=== PATIENT | female | born 1970 | race Caucasian/White ===

== ENCOUNTER → 2020-03-26 | Outpatient (CLI) | payer OTHER ==
--- NOTE | 2020-03-26 16:37 | Diagnostic Imaging Report ---
PROCEDURE: MR imaging left lower extremity without contrast. TECHNIQUE: Multiplanar, multisequence non contrast enhanced MR imaging of the left lower extremity was accomplished. INDICATION: Left foot pain after injury. COMPARISON: None available. FINDINGS: Bones: There is no bone marrow edema within the osseous structures of the forefoot or midfoot to indicate stress fracture or osteitis. No erosions are present. Normal T1 hyperintense bone marrow signal is present. No significant degenerative changes within the MTP joints. Soft tissues: Lisfranc ligamentous complex is intact. Intrinsic musculature of the foot is normal bulk and signal. There is a thin plaque-like soft tissue nodule along the plantar fascia in the proximal forefoot measuring 2 x 4 mm and may represent a small focus of nodular fibromatosis. No features of intermetatarsal bursitis. No Nelson's neuroma. IMPRESSION: 1. No fracture or stress fracture within the left midfoot and forefoot. 2. No tendon injury or muscle strain. 3. Incidental note of small nodular focus of soft tissue thickening of plantar fascia could represent mild plantar fibromatosis. Dictated by: Dictated on workstation # [id number]
== END ==
LOC: RAD 14:27
PROVIDERS: ATTEND Family Medicine
DX: M79.672 Pain in left foot (principal)

== ENCOUNTER 2021-06-29 17:40 | Emergency (ER) | payer OTHER ==
[~2021-06-29] VITALS: Ht 170.2 cm; Wt 122.5 kg
--- NOTE | 2021-06-29 18:22 | ED Cough/URI ---
General Chief Complaint: Respiratory Problems Stated Complaint: FEVER/SOA Source: patient Exam Limitations: no limitations History of Present Illness Date Seen by Provider: Jun 29, 2021 Time Seen by Provider: 18:15 Initial Comments 51-year-old female with past medical history significant for high blood pressure, hypercholesterolemia and sleep apnea presents with cough, shortness of air and fatigue over the past 5 days. Patient concerned she was exposed to her daughter who tested positive for Covid 2 weeks ago, but has not been around her for the past 2 weeks. She has chills but has not checked her temperature and body aches. Denies abdominal pain vomiting or diarrhea. She has been using her CPAP during the day the last 2 days because of her shortness of air. Allergies and Home Medications Allergies Coded Allergies: No Known Drug Allergies (Unverified , 06/29/21) Home Medications Ondansetron 4 Mg Tab.rapdis, 4 MG PO TID Prescribed by: THANIA GAN on 06/29/211950 Potassium Chloride 20 Meq Tab.er.prt, 20 MEQ PO DAILY Prescribed by: THANIA GAN on 06/29/211950 Patient Home Medication List Home Medication List Reviewed: Yes Review of Systems Review of Systems Constitutional: chills; No fever; malaise EENTM: No ear pain, No throat pain, No throat swelling Respiratory: see HPI, cough, short of breath; No stridor, No wheezing Gastrointestinal: No abdominal pain, No diarrhea; loss of appetite; No nausea, No vomiting Musculoskeletal: No back pain, No joint pain; muscle pain; No muscle weakness Skin: No change in color, No rash Psychiatric/Neurological: Denies Headache, Denies Paresthesia, Denies Seizure Past Soyfhfw-Fqyivd-Kurbbh Hx Patient Social History Tobacco Use?: No Smoking Status: Never a Smoker Substance use?: No Alcohol Use?: No Pt feels they are or have been: No Physical Exam Vital Signs - First Documented 06/29/21 17:55 Temp 35.1 Pulse 71 Resp 19 B/P (MAP) 109/54 (72) Pulse Ox 94 O2 Delivery Room Air Capillary Refill : Height: '" Weight: lbs. oz. kg; BMI Method: General Appearance: WD/WN, no apparent distress HEENT: PERRL/EOMI, normal ENT inspection Neck: non-tender, supple Respiratory: chest non-tender, lungs clear, normal breath sounds, no respiratory distress, no accessory muscle use Cardiovascular: regular rate, rhythm, no edema, no JVD Gastrointestinal: normal bowel sounds, non tender, soft Extremities: normal range of motion, non-tender Neurologic/Psychiatric: alert, normal mood/affect Skin: normal color, warm/dry Focused Exam Lactate Level 06/29/21 18:12: Lactic Acid Level 2.41*H 06/29/21 20:15: Lactic Acid Level Laboratory Tests Test 06/29/21 18:12 06/29/21 20:15 Lactic Acid Level 2.41 MMOL/L (0.50-2.00) *H Progress/Results/Core Measures Suspected Sepsis SIRS Temperature: Pulse: Respiratory Rate: Laboratory Tests 06/29/21 18:12: White Blood Count 4.4 Blood Pressure / Mean: 06/29/21 18:12: Lactic Acid Level 2.41*H 06/29/21 20:15: Laboratory Tests 06/29/21 18:12: Creatinine 1.28, Platelet Count 161, Total Bilirubin 0.4 Results/Orders Lab Results Laboratory Tests Test 06/29/21 18:12 06/29/21 20:15 Range/Units White Blood Count 4.4 4.3-11.0 10^3/uL Red Blood Count 4.88 4.35-5.85 10^6/uL Hemoglobin 15.2 11.5-16.0 G/DL Hematocrit 43 35-52 % Mean Corpuscular Volume 87 80-99 FL Mean Corpuscular Hemoglobin 31 25-34 PG Mean Corpuscular Hemoglobin Concent 36 32-36 G/DL Red Cell Distribution Width 13.1 10.0-14.5 % Platelet Count 161 130-400 10^3/uL Mean Platelet Volume 12.0 H 7.4-10.4 FL Immature Granulocyte % (Auto) 0 % Neutrophils (%) (Auto) 74 42-75 % Lymphocytes (%) (Auto) 20 12-44 % Monocytes (%) (Auto) 5 0-12 % Eosinophils (%) (Auto) 0 0-10 % Basophils (%) (Auto) 1 0-10 % Neutrophils # (Auto) 3.3 1.8-7.8 X 10^3 Lymphocytes # (Auto) 0.9 L 1.0-4.0 X 10^3 Monocytes # (Auto) 0.2 0.0-1.0 X 10^3 Eosinophils # (Auto) 0.0 0.0-0.3 10^3/uL Basophils # (Auto) 0.0 0.0-0.1 10^3/uL Immature Granulocyte # (Auto) 0.0 0.0-0.1 10^3/uL Sodium Level 131 L 135-145 MMOL/L Potassium Level 2.8 L 3.6-5.0 MMOL/L Chloride Level 92 L 98-107 MMOL/L Carbon Dioxide Level 22 21-32 MMOL/L Anion Gap 17 H 5-14 MMOL/L Blood Urea Nitrogen 20 H 7-18 MG/DL Creatinine 1.28 0.60-1.30 MG/DL Estimat Glomerular Filtration Rate 44 BUN/Creatinine Ratio 16 Glucose Level 137 H 70-105 MG/DL Lactic Acid Level 2.41 *H 0.50-2.00 MMOL/L Calcium Level 9.1 8.5-10.1 MG/DL Corrected Calcium 8.7 8.5-10.1 MG/DL Total Bilirubin 0.4 0.1-1.0 MG/DL Aspartate Amino Transf (AST/SGOT) 30 5-34 U/L Alanine Aminotransferase (ALT/SGPT) 22 0-55 U/L Alkaline Phosphatase 70 40-136 U/L Troponin I < 0.30 <0.30 NG/ML C-Reactive Protein 2.04 H <0.50 MG/DL Total Protein 8.0 6.4-8.2 GM/DL Albumin 4.5 3.2-4.5 GM/DL Influenza Type A (RT-PCR) Not Detected Not Detecte Influenza Type B (RT-PCR) Not Detected Not Detecte SARS-CoV-2 RNA (RT-PCR) Detected H Not Detecte My Orders Orders - ROVENSTINECHATOTHANIA Benitez DO Ed Iv/Invasive Line Start (06/29/21 18:17) Chest 1 View Ap/Pa Only (06/29/21 18:17) Ekg Tracing (06/29/21 18:17) Troponin I Fs (06/29/21 18:17) Cbc With Automated Diff (06/29/21 18:17) Comprehensive Metabolic Panel (06/29/21 18:17) Lactic Acid Analyzer (06/29/21 18:17) Crp Fs (06/29/21 18:17) Covid 19 Inhouse Test (06/29/21 18:17) Influenza A And B By Pcr (06/29/21 18:17) Procalcitonin (Pct) (06/29/21 18:12) Ns Iv 1000 Ml (Sodium Chloride 0.9%) (06/29/21 19:00) Potassium Chloride (Tablet) (K Dur Table (06/29/21 19:15) Ns Iv 1000 Ml (Sodium Chloride 0.9%) (06/29/21 19:51) Medications Given in ED Current Medications Medications Dose Ordered Sig/Vu Route Start Time Stop Time Status Last Admin Dose Admin Potassium Chloride 40 meq ONCE ONCE PO 06/29/21 19:15 06/29/21 19:16 DC 06/29/21 19:28 40 MEQ Sodium Chloride 1,000 ml @ ud STK-MED ONCE .ROUTE 06/29/21 19:51 06/29/21 19:53 DC 06/29/21 19:59 1,000 MLS/HR Vital Signs/I&O 06/29/21 17:55 Temp 35.1 Pulse 71 Resp 19 B/P (MAP) 109/54 (72) Pulse Ox 94 O2 Delivery Room Air Capillary Refill : Progress Note : Time: 19:51 Progress Note patient feeling much better after 1 liter NS and held down po K without incident. BP still low, so will give 2nd liter NS now with anticipation to DC home 2010- pt feeling better still and BP improving, now w systolic 114/ x . Will DC home w planned follow up with PCP. Discussed returning to the ER for any worsening Sx ECG Initial ECG Impression Date: Jun 29, 2021 Initial ECG Impression Time: 18:39 Initial ECG Rate: 70 Initial ECG Rhythm: Normal Sinus Initial ECG Intervals: Normal Initial ECG Impression: Normal Initial ECG Comparisson: No Previous ECG Available Comment old inferior, LVH Diagnostic Imaging Comments Date of Exam:06/29/21 CHEST 1 VIEW AP/PA ONLY INDICATION: Shortness of breath. EXAMINATION: Frontal chest was obtained at 6:26 p.m. FINDINGS: Heart and mediastinal silhouette are normal in appearance. The lungs are clear. There is no pneumothorax or pleural fluid. IMPRESSION: Negative chest. Dictated on workstation # [id number] Dict: 06/29/211924 Trans: 06/29/211929 [facility] [id number] Interpreted by: COBY PAEZ MD Electronically signed by: Departure Impression Primary Impression: Hypokalemia Additional Impression: COVID-19 Disposition: 01 HOME, SELF-CARE Condition: Improved Departure-Patient Inst. Decision time for Depature: 19:48 Referrals: MICHAEL ELLIS MD (PCP/Family) Primary Care Physician Patient Instructions: Hypokalemia (DC), COVID-19 ED Add. Discharge Instructions: Follow up with Dr Ellis in 1 week for re-evaluation and to have your labs checked (potassium). You are encouraged to stay hydrated. Take the following for 2 weeks: Vitamin D 4,000iu daily Vitamin C 1,000mg twice daily Zinc 100mg daily Melatonin 10mg at bedtime Aspirin 325mg daily All discharge instructions reviewed with patient and/or family. Voiced understanding. Scripts Ivermectin (Ivermectin) 3 Mg Tablet 24 MG PO DAILY PRN for 5 Days, #40 TAB Prov: THANIA GAN DO 06/29/21 Ondansetron (Ondansetron Odt) 4 Mg Tab.rapdis 4 MG PO TID for Nausea, #12 TAB Prov: KANIKASTINETHANIA DO 06/29/21 Potassium Chloride (Potassium Chloride) 20 Meq Tab.er.prt 20 MEQ PO DAILY, #10 TAB Prov: KANIKASTINETHANIA DO 06/29/21 ROBAILEYSTINETHANIA DO Jun 29, 2021 18:22
[2021-06-29 18:24] LABS: BASOPHILS % (AUTO) 1 % (0-10); EOSINOPHILS % (AUTO) 0 % (0-10); HEMATOCRIT 43 % (35-52); HEMOGLOBIN 15.2 G/DL (11.5-16.0); LYMPHOCYTES # (AUTO) 0.9 X 10^3 (1.0-4.0); LYMPHOCYTES % (AUTO) 20 % (12-44); MEAN CORPUSCULAR HEMOGLOBIN 31 PG (25-34); MEAN CORPUSCULAR HGB CONC 36 G/DL (32-36); MEAN CORPUSCULAR VOLUME 87 FL (80-99); MONOCYTES # (AUTO) 0.2 X 10^3 (0.0-1.0); MONOCYTES % (AUTO) 5 % (0-12); NEUTROPHILS # (AUTO) 3.3 X 10^3 (1.8-7.8); NEUTROPHILS % (AUTO) 74 % (42-75); PLATELET COUNT 161 10^3/uL (130-400); WHITE BLOOD COUNT 4.4 10^3/uL (4.3-11.0)
[2021-06-29 18:46] LABS: ALANINE AMINOTRANSFERASE 22 U/L (0-55); ALKALINE PHOSPHATASE 70 U/L (40-136); BILIRUBIN,TOTAL 0.4 MG/DL (0.1-1.0); BUN/CREATININE RATIO 16; CALCIUM 9.1 MG/DL (8.5-10.1); CARBON DIOXIDE 22 MMOL/L (21-32); CHLORIDE 92 MMOL/L (98-107); CREATININE SERUM 1.28 MG/DL (0.60-1.30); GFR ESTIMATED 44; GLUCOSE 137 MG/DL (70-105); POTASSIUM 2.8 MMOL/L (3.6-5.0); SODIUM 131 MMOL/L (135-145)
[2021-06-29 18:47] LABS: ALBUMIN 4.5 GM/DL (3.2-4.5)
[2021-06-29] MEDS ORDERED: NS IV 1000 ML 1,000 ML IV SCH (19:00)
[2021-06-29] MEDS ORDERED: KCL 20 MEQ TAB (K-DUR) PO ONE (19:15)
--- NOTE | 2021-06-29 19:30 | Diagnostic Imaging Report ---
INDICATION: Shortness of breath. EXAMINATION: Frontal chest was obtained at 6:26 p.m. FINDINGS: Heart and mediastinal silhouette are normal in appearance. The lungs are clear. There is no pneumothorax or pleural fluid. IMPRESSION: Negative chest. Dictated by: Dictated on workstation # [id number]
[2021-06-29] MEDS ORDERED: POTA20TA15 PO (19:51)
[2021-06-29] MEDS ORDERED: NS IV 1000 ML 1,000 ML ONE (19:51)
[2021-06-29] MEDS ORDERED: ONDA4TAB11 PO (19:51)
[2021-06-29] MEDS ORDERED: IVER3TAB2 PO (20:42)
[2021-06-29 21:00] VITALS: BP 109/69
[2021-06-29] MEDS ORDERED: CEFEPIME INJECTION 1,000 MG in WATER (STERILE) FOR INJECTION 10 ML IV ONE (21:15)
== END 2021-06-29 21:00 | disposition home or self-care (01) ==
LOC: EDUNIT# 17:40 → ER FS 17:42
DX: U07.1 COVID-19 (principal); E87.6 Hypokalemia
CPT/HCPCS: 36415; 71045; 80053; 83605; 84145; 84484; 85025; 86141; 87636; 93005

== ENCOUNTER 2022-09-07 20:29 | Emergency (ER) | payer BC, OTHER ==
[~2022-09-07] VITALS: Ht 165.1 cm; Wt 127.2 kg
[~2022-09-07 20:29] MED LIST: IVER3TAB2 PO; ONDA4TAB11 PO; POTA-179 PO
--- NOTE | 2022-09-07 20:53 | ED Fall/Injury ---
General Stated Complaint: FALL History of Present Illness Date Seen by Provider: Sep 07, 2022 Time Seen by Provider: 20:48 Initial Comments 51-year-old female here status post fall. She was outside tripped on a parking curb and could not catch her balance and fell and landed on her left side. She is now having pain happen under the left breast in the ribs. Hurts with taking deep breaths. Arm does not hurt. Did land on the knee but she states that it does not hurt and she is able to walk. Allergies and Home Medications Allergies Coded Allergies: No Known Drug Allergies (Unverified , 06/29/21) Patient Home Medication List Home Medication List Reviewed: Yes Ivermectin (Ivermectin) 3 Mg Tablet, 24 MG PO DAILY PRN Prescribed by: THANIA GAN on 06/29/212041 Ondansetron (Ondansetron Odt) 4 Mg Tab.rapdis, 4 MG PO TID Prescribed by: THANIA GAN on 06/29/211950 Potassium Chloride (Potassium Chloride) 20 Meq Tab.er.prt, 20 MEQ PO DAILY Prescribed by: THANIA GAN on 06/29/211950 Review of Systems Review of Systems Constitutional: see HPI Past Twigoan-Zlltyz-Oalphf Hx Patient Social History Tobacco Use?: No Physical Exam Vital Signs Vital Signs - First Documented 09/07/22 20:45 Temp 36.5 Pulse 62 Resp 14 B/P (MAP) 127/84 (98) O2 Delivery Room Air Capillary Refill : Height, Weight, BMI Height: '" Weight: lbs. oz. kg; 42.00 BMI Method: General Appearance: WD/WN, no apparent distress Respiratory: lungs clear, normal breath sounds, other (pain in left chest wall with palpation and inspiration. ) Progress/Results/Core Measures Results/Orders My Orders Orders - CATARINA HARRELL MD Ribs/Unilateral With Chest (09/07/22 20:51) Vital Signs/I&O 09/07/22 20:45 Temp 36.5 Pulse 62 Resp 14 B/P (MAP) 127/84 (98) O2 Delivery Room Air Progress Progress Note : Time: 21:47 Progress Note X-ray shows fracture and posterior sixth rib. Explained to patient. We will give her pain meds. We will send more and write a note for off work until c leared by physician Diagnostic Imaging Diagonstic Imaging: Xray Comments [place], [place] NAME: BHARATI SALCIDO MED REC#: [id number] PT STATUS: REG ER : 1970 PHYSICIAN: CATARINA HARRELL MD ADMIT DATE: 09/07/22/ER FS Draft Date of Exam:09/07/22 RIBS/UNILATERAL WITH CHEST EXAMINATION: Left ribs unilateral 2 view HISTORY: Chest injury. COMPARISON: None available. FINDINGS: There is likely a left posterior 6th rib fracture. The lungs are clear. No edema. No pneumonia. No pleural effusion. No pneumothorax. Heart is normal in size. IMPRESSION: 1. Clear lungs. 2. Likely posterolateral left 6th rib fracture. Dictated on workstation # [id number] Dict: 09/07/222129 Trans: 09/07/222131 [facility] [id number] Interpreted by: RANCHO SIFUENTES MD Electronically signed by: Departure Impression Primary Impression: Fracture of rib Qualified Codes: S22.32XA - Fracture of one rib, left side, initial encounter for closed fracture Disposition: HOME, SELF-CARE Condition: Stable Departure-Patient Inst. Decision time for Depature: 21:48 Referrals: MICHAEL CLEMONS MD (PCP/Family) Primary Care Physician Patient Instructions: Rib Fracture (DC) Add. Discharge Instructions: Rest ice pain meds. May tow picker incentive spirometer to help with keeping lungs open. Follow-up with primary care Scripts Hydrocodone/Acetaminophen (Hydrocodone-Acetamin 5-325 mg) 5 Mg-325 Mg Tablet 1 TAB PO Q6H PRN for PAIN-MODERATE (5-7) for 5 Days, #20 TAB 0 Refills Prov: CATARINA HARRELL MD 09/07/22 Work/School Note: Family Work Note Patient Received Medical Care In the Emergency Department On: Sep 07, 2022 Patient Will Be Able to Return to Work/School On: Sep 19, 2022 Patient Restrictions: May not return to work until cleared by physician CATARINA HARRELL MD Sep 07, 2022 20:53
--- NOTE | 2022-09-07 21:33 | Diagnostic Imaging Report ---
EXAMINATION: Left ribs unilateral 2 view HISTORY: Chest injury. COMPARISON: None available. FINDINGS: There is likely a left posterior 6th rib fracture. The lungs are clear. No edema. No pneumonia. No pleural effusion. No pneumothorax. Heart is normal in size. IMPRESSION: 1. Clear lungs. 2. Likely posterolateral left 6th rib fracture. Dictated by: Dictated on workstation # [id number]
[2022-09-07] MEDS ORDERED: ACHD5005 PO (21:49)
[2022-09-07] MEDS ORDERED: HYDROcodone/APAP 5 MG/325 MG (LORTAB) TAB PO ONE (22:00)
[2022-09-07 22:10] VITALS: BP 127/84
== END 2022-09-07 22:10 | disposition home or self-care (01) ==
LOC: EDUNIT# 20:29 → ER FS 20:31
DX: S22.32XA Fracture of one rib, left side, initial encounter for closed fracture (principal); Z28.310 Unvaccinated for COVID-19; W01.0XXA Fall on same level from slipping, tripping and stumbling without subsequent striking against object, initial encounter; Y92.481 Parking lot as the place of occurrence of the external cause
CPT/HCPCS: 71101; 94640